=== PATIENT | female | born 2000 | race Caucasian/White ===

== ENCOUNTER 2019-01-06 15:25 | Inpatient (IN) | payer BC, OTHER ==
[2019-01-06 15:58] VITALS: BMI 34.2
[2019-01-06] MEDS ORDERED: Lidocaine 1% (PF) 30 ML VIAL SC PRN (16:24)
[2019-01-06] MEDS ORDERED: Ondansetron PF 4 MG/2 ML Vial IVP PRN ×2 (16:24→21:24)
[2019-01-06] MEDS ORDERED: Ibuprofen 800 MG TAB PO PRN (16:24)
[2019-01-06] MEDS ORDERED: Docusate 100 MG CAP PO PRN (16:24)
[2019-01-06] MEDS ORDERED: HYDROcodone/Acetaminophen 5/325 mg Tablet PO PRN ×2 (16:24)
[2019-01-06] MEDS ORDERED: NS / Oxytocin 40 units/1000ml 1,000 ML IV PRN (16:24)
[2019-01-06] MEDS ORDERED: Promethazine HCl 25 MG/ML VIAL IM PRN ×2 (16:24→21:24)
[2019-01-06] MEDS ORDERED: hydrALAZINE 20 MG/ML VIAL SLOW IVP PRN (16:24)
[2019-01-06] MEDS ORDERED: Butorphanol Tartrate 1 MG/ML VIAL SLOW IVP PRN (16:24)
[2019-01-06 16:49] LABS: Hemoglobin 13.5 g/dL (12.0-16.0); Mean Corpuscular HGB CONC 35.1 g/dL (32.0-36.0); Mean Corpuscular Hemoglobin 32.4 pg (25.0-35.0); Mean Corpuscular Volume 92.3 fL (78.0-98.0); Mean Platelet Volume 8.2 fL (7.4-10.4); Platelet Count 207 thou/uL (130-400); RBC Distribution Width 11.5 % (11.5-14.5); Red Blood Cell (RBC) Count 4.16 mill/uL (4.00-5.20); White Blood Cell (WBC) Count 9.6 thou/uL (4.8-10.8)
[2019-01-06 17:30] LABS: Syphilis Antibody Nonreactive (Nonreactive); Syphilis Antibody Index 0.04 S/CO (<1.00 Non-Reactive)
[2019-01-06 17:31] LABS: HBSAg Index 0.17 S/CO (0-0.99); Hep B Surf Ag Non-Reactive S/CO (NonReactive)
[2019-01-06] MEDS ORDERED: Ondansetron PF 4 MG/2 ML Vial ONE (19:18)
[2019-01-06] MEDS ORDERED: Fentanyl 4 mcg/Bup 0.1% Cadd 100 ML ONE (20:34)
[2019-01-06] MEDS: Lactated Ringer's 1,000 ML IV SCH (20:46)
[2019-01-06] MEDS ORDERED: Fentanyl 100 MCG/2 ML VIAL ONE (20:58)
[2019-01-06] MEDS ORDERED: Naloxone HCl 0.4 mg/ml Vial IVP PRN ×2 (21:24)
[2019-01-06] MEDS ORDERED: Acetaminophen 325 MG TAB PO PRN (21:24)
[2019-01-06] MEDS ORDERED: ePHEDrine/0.9% NaCl/PF SYRINGE 50 mg/10 ml SLOW IVP PRN (21:24)
[2019-01-06] MEDS ORDERED: Lactated Ringer's 500 ML IV PRN (21:24)
[2019-01-06] MEDS ORDERED: diphenhydrAMINE 50 MG/ML VIAL IVP PRN (21:24)
[2019-01-06] MEDS ORDERED: Communication Order-Pharmacy FS SCH (21:30)
[2019-01-06] MEDS ORDERED: Fentanyl 4 mcg/Bupivacaine 0.1% Cassette 100 ML EPIDURAL SCH (21:30)
[2019-01-07] MEDS: Lactated Ringer's 1,000 ML IV SCH ×3 (02:23→18:20)
[2019-01-07] MEDS ORDERED: Fentanyl 4 mcg/Bup 0.1% Cadd 100 ML ONE (03:17)
[2019-01-07] MEDS ORDERED: Lidocaine 1% (PF) 30 ML VIAL ONE (04:37)
[2019-01-07] MEDS ORDERED: Bisacodyl 10 MG SUPP PR PRN (05:32)
[2019-01-07] MEDS ORDERED: HYDROcodone/Acetaminophen 5/325 mg Tablet PO PRN (05:32)
[2019-01-07] MEDS ORDERED: Milk Of Magnesia 30 ML UDCUP PO PRN (05:32)
[2019-01-07] MEDS ORDERED: Ondansetron PF 4 MG/2 ML Vial IVP PRN (05:32)
[2019-01-07] MEDS ORDERED: Preparation H Ointment 28 GM TUBE PR PRN (05:32)
[2019-01-07] MEDS ORDERED: Lanolin Ointment 7 GM TUBE TOP PRN (05:32)
[2019-01-07] MEDS ORDERED: hydrALAZINE 20 MG/ML VIAL SLOW IVP PRN (05:32)
[2019-01-07] MEDS ORDERED: Benzocaine-Menthol 82.5 ML CAN TOP PRN (05:32)
[2019-01-07] MEDS ORDERED: NS / Oxytocin 40 units/1000ml 1,000 ML IV SCH (05:45)
--- NOTE | 2019-01-07 06:00 | OP ---
DATE OF PROCEDURE: 01/07/2019 PREOPERATIVE DIAGNOSES: 1. A 18-year-old, G2, P0-0-1-0 at 38 and 6 weeks in active labor. 2. Group B Streptococcus negative. 3. Artificial rupture of membranes. 4. Rh negative. POSTOPERATIVE DIAGNOSES: 1. A 18-year-old, G2, P0-0-1-0 at 38 and 6 weeks in active labor. 2. Group B Streptococcus negative. 3. Artificial rupture of membranes. 4. Rh negative. 5. Live-born male weighing 7 pounds 6 ounces with Apgars of 5 and 8 at 1 and 5 minutes respectively. 6. Rapid delivery. ANESTHESIA: Epidural. ESTIMATED BLOOD LOSS: 150 mL. PROCEDURES PERFORMED: 1. Spontaneous vaginal delivery. 2. Repair of a first-degree left vaginal laceration. CLINICAL HISTORY: This patient is a 18-year-old, G2, P0-0-1-0, who presented to my office for her routine OB visit at 38 weeks and 5 days. She was found to be 4 cm, 70% effaced, and -2 station, and appeared uncomfortable, however, was unaware that she was in labor. She was sent to Labor and Delivery and an amniotomy was performed for clear fluid. She had a desire to go natural and labored in the room, was able to make it to 5 cm; however, progressed to request an epidural for maternal analgesia. Afterward, she continued to progress to complete cervical dilation and +2 station and began to push. DESCRIPTION OF PROCEDURE: With good maternal effort, the patient was able to bring the vertex to the pelvic floor and the introitus to within 20 minutes. The head was delivered in the BALDEMAR position and the nuchal cord was recognized and reduced very easily at the perineum. The anterior shoulder followed by the posterior shoulder followed by the remainder of the 's body was delivered. The terminal meconium was noted. The cried spontaneously and then was bulb suctioned. After stimulation, he gave a weak cry and was taken over to the bassinet for continued suctioning and stimulation. The cord was doubly clamped and cut by the mother of the patient and the cord blood was obtained. The placenta was delivered spontaneously intact with a three-vessel cord. The uterine massage was performed and exploration of the vagina introitus and cervix noted a first-degree laceration, which was repaired in a running locking fashion with excellent hemostasis. The patient was able to recover on Labor and Delivery in satisfactory condition with her . Again, the infant was a live born male weighing 7 pounds 6 ounces with Apgars of 5 and 8 at 1 and 5 minutes respectively. There were no other issues surrounding this delivery. All needle, sponge, lap, and instrument counts were correct x2 at the end of the procedure. Job ID: [id number]
[2019-01-07] MEDS ORDERED: Adacel (T-DAP) 0.5 ML SYRINGE IM ONE (09:00)
[2019-01-07] MEDS: Docusate Calcium (SURFAK) 240 MG CAP PO SCH ×2 (10:01→22:31)
[2019-01-07] MEDS: Prenatal Vitamin 1 TAB PO SCH (10:01)
[2019-01-07] MEDS: NS w/ Oxytocin 10 units 500 ML IV SCH ×2 (11:01→18:21)
[2019-01-07] MEDS: Ferrous Sulfate 325 MG TAB PO SCH ×2 (11:04→18:21)
[2019-01-07] MEDS: Ibuprofen 800 MG TAB PO SCH ×3 (11:04→22:32)
[2019-01-07] MEDS: HYDROcodone/Acetaminophen 5/325 mg Tablet PO PRN (19:14)
[2019-01-08] MEDS: Lactated Ringer's 1,000 ML IV SCH ×3 (06:05→16:40)
[2019-01-08] MEDS: Ibuprofen 800 MG TAB PO SCH ×3 (06:06→21:42)
[2019-01-08] MEDS: Docusate Calcium (SURFAK) 240 MG CAP PO SCH ×2 (07:43→21:41)
[2019-01-08] MEDS: HYDROcodone/Acetaminophen 5/325 mg Tablet PO PRN ×2 (07:43→13:41)
[2019-01-08] MEDS: Prenatal Vitamin 1 TAB PO SCH (07:43)
[2019-01-08] MEDS: Ferrous Sulfate 325 MG TAB PO SCH ×2 (12:02→16:48)
[2019-01-08] MEDS: NS w/ Oxytocin 10 units 500 ML IV SCH (16:40)
[2019-01-09] MEDS: HYDROcodone/Acetaminophen 5/325 mg Tablet PO PRN (00:29)
[2019-01-09] MEDS: Lactated Ringer's 1,000 ML IV SCH ×3 (00:35→16:00)
[2019-01-09] MEDS: Ibuprofen 800 MG TAB PO SCH ×2 (05:38→13:12)
[2019-01-09] MEDS: Ferrous Sulfate 325 MG TAB PO SCH ×2 (08:28→16:01)
[2019-01-09] MEDS: Prenatal Vitamin 1 TAB PO SCH (08:28)
[2019-01-09] MEDS: Docusate Calcium (SURFAK) 240 MG CAP PO SCH (08:28)
[2019-01-09 10:53] VITALS: BP 110/63; TEMP 99
== END 2019-01-09 16:55 | disposition home or self-care (01) | DRG 807 ==
LOC: L&D-LIB 15:25 → 3SW 01-07 09:01
PROVIDERS: ADMIT Obstetrics & Gynecology; ATTEND Obstetrics & Gynecology
PROC: 10E0XZZ Delivery of Products of Conception, External Approach (ICD-10-PCS; principal; 2019-01-07)
PROC: 10907ZC Drainage of Amniotic Fluid, Therapeutic from Products of Conception, Via Natural or Artificial Opening (ICD-10-PCS; 2019-01-07)
PROC: 0HQ9XZZ Repair Perineum Skin, External Approach (ICD-10-PCS; 2019-01-07)
DX: O77.0 Labor and delivery complicated by meconium in amniotic fluid (principal); Z37.0 Single live birth; O70.0 First degree perineal laceration during delivery; Z3A.38 38 weeks gestation of pregnancy; O69.81X0 Labor and delivery complicated by cord around neck, without compression, not applicable or unspecified
CPT/HCPCS: 36415; 51702; 85027; 85461; 86780; 86850; 86870; 86900; 86901; 87340; 90384; 96372; J2001; J2405; J3010